=== PATIENT | female | born 1980 | race Hispanic/Latino ===

== ENCOUNTER 2017-09-01 18:26 | Inpatient (IN) | payer OTHER, SELFPAY ==
[~2017-09-01 18:26] MED LIST: ISOVUE-370 76%-LOCM 1 ML ONE
[2017-09-01] MEDS ORDERED: Fentanyl 100 MCG/2 ML VIAL ONE (18:43)
[2017-09-01 18:49] LABS: Hemoglobin 11.3 g/dL (12.0-16.0); Mean Corpuscular HGB CONC 32.7 g/dL (32.0-36.0); Mean Corpuscular Hemoglobin 30.8 pg (27.0-31.0); Mean Corpuscular Volume 94.3 fL (78.0-98.0); Mean Platelet Volume 6.6 fL (7.4-10.4); Platelet Count 299 thou/uL (130-400); RBC Distribution Width 11.3 % (11.5-14.5); Red Blood Cell (RBC) Count 3.67 mill/uL (4.20-5.40); White Blood Cell (WBC) Count 28.2 thou/uL (4.8-10.8)
[2017-09-01 18:54] LABS: INR-International Normal Ratio 1.2; PTT 29.3 SEC (22.9-36.1); Prothrombin Time 15.2 SEC (12.0-14.7)
[2017-09-01 19:03] LABS: Band 17 % (5-11); Lymphocytes 18 % (21-51); MDiff Complete? YES; Metamyelocyte 1 % (0-0); Monocytes 4 % (0-10); Neutrophil 58 % (42-75); PLT Morphology Comment Appears Adequate; Polychromasia SLIGHT = 2-3 cells (100X) (0-2/hpf); Reactive Lymphocytes 1 % (0-10)
[2017-09-01 19:05] LABS: ALT (SGPT) 994 U/L (8-55); AST (SGOT) 1114 U/L (5-34); Albumin 3.4 g/dL (3.5-5.0); Alkaline Phosphatase 80 U/L (40-150); Anion Gap 14 mmol/L (10-20); BUN (Urea Nitrogen) 16 mg/dL (7.0-18.7); Bilirubin, Total 0.6 mg/dL (0.2-1.2); Calc. Creatinine Clearance 0 mL/min (70-130); Calcium 8.1 mg/dL (7.8-10.44); Carbon Dioxide 17 mmol/L (22-29); Chloride 111 mmol/L (98-107); Estimated GFR-MDRD 70; Globulin 2.5 g/dL (2.4-3.5); Glucose 223 mg/dL (70-105); Lipase 48 U/L (8-78); Potassium 3.2 mmol/L (3.5-5.1); Protein, Total 5.9 g/dL (6.0-8.3); Sodium 139 mmol/L (136-145)
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
[2017-09-01] MEDS ORDERED: Lidocaine 1% w/Epinephrine 1:100K 20 ML VIAL ONE ×2 (19:15→19:23)
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
[2017-09-01] MEDS ORDERED: Ondansetron HCl/PF 4 MG/2 ML Vial ONE ×2 (20:05→21:13)
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
[2017-09-01] MEDS ORDERED: Adacel (T-DAP) 0.5 ML VIAL ONE (20:38)
[2017-09-01] MEDS ORDERED: Dextrose 5% in Water 1,000 ML IV PRN ×2 (20:39→20:48)
[2017-09-01] MEDS ORDERED: Dextrose 50% Abboject 50 ML SYRINGE SLOW IVP PRN ×2 (20:39→20:48)
[2017-09-01] MEDS ORDERED: HumaLOG 300 UNITS/3 ML VIAL SC PRN (20:48)
[2017-09-01] MEDS ORDERED: diphenhydrAMINE 50 MG/ML VIAL IM/IV PRN (20:51)
[2017-09-01] MEDS ORDERED: Naloxone HCl 0.4 mg/ml Vial IV PRN (20:51)
[2017-09-01] MEDS ORDERED: HYDROmorphone 10 mg/100 ml CADD IV PRN (20:51)
[2017-09-01] MEDS ORDERED: diphenhydrAMINE 25 MG CAP PO PRN (20:51)
[2017-09-01] MEDS ORDERED: Ondansetron HCl/PF 4 MG/2 ML Vial IVP PRN (20:51)
[2017-09-01] MEDS ORDERED: Zolpidem Tartrate 5 MG TAB PO PRN (20:51)
[2017-09-01] MEDS ORDERED: Promethazine HCl 25 MG/ML VIAL IM PRN (20:51)
[2017-09-01] MEDS ORDERED: CEFAZOLIN 1 GM VIAL ONE (20:54)
[2017-09-01 20:57] LABS: Hemoglobin 13.2 g/dL (12.0-16.0)
[2017-09-01] MEDS ORDERED: Tranexamic Acid 1,000 MG in Sodium Chloride 0.9% 250 ML 250 ML IVPB SCH (21:00)
[2017-09-01 21:06] LABS: INR-International Normal Ratio 1.1; PTT 29.2 SEC (22.9-36.1); Prothrombin Time 14.2 SEC (12.0-14.7)
[2017-09-01 21:18] LABS: BHCG - Serum Negative (NEGATIVE); Pregs Control Background? CLEAR/WHITE (CLR/WHITE); Pregs Control Bar Appear? YES (CONTROL BAR)
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
[2017-09-01 22:02] LABS: Bilirubin Negative (Negative); Blood, Urine Large (Negative); Clarity CLOUDY (Clear); Glucose, Urine (Dipstick) 100 mg/dL (Negative); Leukocyte Negative (Negative); Nitrite Negative (Negative); Protein, Urine (Dipstick) 100 mg/dL (Neg-Trace); Urobilinogen 0.2 mg/dL (0.2-1.0); pH, Urine 5.5 (5.0-9.0)
[2017-09-01 22:04] LABS: Bacteria/HPF None Seen HPF (None Seen); RBC/HPF 0-3 HPF (0-3); WBC/HPF 0-3 HPF (0-3); Yeast-AUWi Flag 6.3 (0-25.0)
[2017-09-01 22:05] LABS: Hyaline Casts/LPF >50 HYALINE CAST LPF (0-3 Hyaline); Pathc Cast-AUWi Flag 12.21 (0-2.49)
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
[2017-09-01 22:13] LABS: Other Casts/LPF 7-10 COARSE GRAN LPF (0-3 Hyaline)
[2017-09-01 23:37] VITALS: BMI 34.8
[2017-09-02 00:46] LABS: Hemoglobin 13.8 g/dL (12.0-16.0)
[2017-09-02] MEDS: Famotidine/PF 20 mg/2ml Vial SLOW IVP SCH ×3 (01:58→20:43)
[2017-09-02] MEDS: Ondansetron HCl/PF 4 MG/2 ML Vial IVP PRN ×3 (02:16→13:52)
[2017-09-02 06:25] LABS: #Lymphocytes 0.9 thou/uL (1.20-3.40); #Monocytes 0.6 thou/uL (0.11-0.59); #Neutrophils 7.3 thou/uL (1.40-6.50); %Eosinophils 0.2 % (0.0-10.0); %Lymphocytes 10.2 % (21.0-51.0); %Monocytes 6.8 % (0.0-10.0); %Neutrophils 82.8 % (42.0-75.0); Hemoglobin 13.7 g/dL (12.0-16.0); Mean Corpuscular HGB CONC 32.3 g/dL (32.0-36.0); Mean Corpuscular Hemoglobin 29.9 pg (27.0-31.0); Mean Corpuscular Volume 92.3 fL (78.0-98.0); Mean Platelet Volume 7.5 fL (7.4-10.4); Platelet Count 147 thou/uL (130-400); RBC Distribution Width 13.7 % (11.5-14.5); Red Blood Cell (RBC) Count 4.59 mill/uL (4.20-5.40); White Blood Cell (WBC) Count 8.8 thou/uL (4.8-10.8)
--- NOTE | 2017-09-02 06:30 | OP ---
DATE OF PROCEDURE: 09/01/2017 PROCEDURE DESCRIPTION: Right chest thoracostomy tube placement. INDICATION: Right pneumothorax. PROCEDURE IN DETAIL: Informed consent was obtained verbally from the patient prior to procedure. A timeout was completed verifying correct patient, procedure site. The patient was positioned appropriately. The right chest was prepped and draped in a sterile fashion. 1% lidocaine with epinephrine was used to anesthetize the surrounding skin. A small incision was made in the mid axillary line at the inframammary crease. Blunt dissection was used to create a subcutaneous tunnel to the superior portion of the rib. The pleural space was then entered bluntly and a gush of air was observed. A finger was inserted into the pleural space to check for anatomy and guide tube insertion. A 36 Bhutanese thoracostomy tube was inserted using a Montse clamp and positioned appropriately. The chest tube was sutured securely to the skin and a sterile dressing was applied. Pleur-Evac was attached to the chest and a chest x-ray was obtained. Procedure was performed with the assistance of Dr. Hopson who was present for the entire procedure. Estimated blood loss minimal. The patient tolerated the procedure well and there were no immediate complications. RAMONA
[2017-09-02 06:45] LABS: Anion Gap 10 mmol/L (10-20); BUN (Urea Nitrogen) 12 mg/dL (7.0-18.7); Calc. Creatinine Clearance 154 mL/min (70-130); Calcium 8.2 mg/dL (7.8-10.44); Carbon Dioxide 25 mmol/L (22-29); Chloride 111 mmol/L (98-107); Estimated GFR-MDRD Greater than 90; Glucose 141 mg/dL (70-105); Magnesium 1.9 mg/dL (1.6-2.6); Phosphorus 2.1 mg/dL (2.3-4.7); Sodium 142 mmol/L (136-145)
[2017-09-02] MEDS ORDERED: Rib Fracture Protocol IV SCH (08:15)
[2017-09-02] MEDS ORDERED: Rib Fracture Protocol PO SCH (08:15)
[2017-09-02] MEDS ORDERED: Cyclobenzaprine 10 MG TAB PO PRN (08:30)
[2017-09-02] MEDS: Scopolamine 1.5 mg/72 hour Patch TD SCH (08:44)
[2017-09-02] MEDS: Lactated Ringer's 1,000 ML IV SCH ×2 (08:45→18:02)
[2017-09-02] MEDS ORDERED: Gabapentin 100 MG CAP PO SCH (09:00)
--- NOTE | 2017-09-02 09:14 | RAD ---
PORTABLE CHEST 1 VIEW: Date: 09/02/17 Time: 0426 hours HISTORY: Pneumothorax, rib fractures. FINDINGS/IMPRESSION: No significant interval change is seen since the exam of previous day at 1844 hours. POS: [facility]
[2017-09-02] MEDS: Gabapentin 300 MG CAP PO SCH ×3 (10:38→20:44)
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
[2017-09-02] MEDS ORDERED: traMADol HCl 50 MG TAB PO SCH (12:00)
[2017-09-02] MEDS ORDERED: Acetaminophen 650 MG Suppository PR SCH (12:00)
[2017-09-02] MEDS ORDERED: Acetaminophen 500 MG TAB PO SCH (12:00)
[2017-09-02] MEDS ORDERED: Ketorolac Tromethamine 30 MG/ML VIAL IVP SCH ×2 (12:00)
[2017-09-02] MEDS ORDERED: Ibuprofen 800 MG TAB PO SCH (12:00)
[2017-09-02] MEDS: traMADol HCl 50 MG TAB PO SCH ×3 (13:34→23:41)
[2017-09-02] MEDS: Ibuprofen 800 MG TAB PO SCH ×2 (13:57→20:44)
[2017-09-02] MEDS: Acetaminophen 500 MG TAB PO SCH ×3 (13:57→23:40)
[2017-09-02] MEDS ORDERED: Ibuprofen 600 MG TAB PO SCH (14:00)
[2017-09-03] MEDS: Lactated Ringer's 1,000 ML IV SCH ×3 (02:00→12:23)
[2017-09-03] MEDS: Ibuprofen 800 MG TAB PO SCH ×3 (05:07→19:46)
[2017-09-03] MEDS: Acetaminophen 500 MG TAB PO SCH ×4 (05:07→23:11)
[2017-09-03] MEDS: traMADol HCl 50 MG TAB PO SCH ×3 (05:10→17:28)
[2017-09-03 05:51] LABS: #Lymphocytes 1.3 thou/uL (1.20-3.40); #Monocytes 0.7 thou/uL (0.11-0.59); #Neutrophils 8.9 thou/uL (1.40-6.50); %Basophils 0.2 % (0.0-1.0); %Eosinophils 0.4 % (0.0-10.0); %Lymphocytes 12.1 % (21.0-51.0); %Monocytes 6.6 % (0.0-10.0); %Neutrophils 80.6 % (42.0-75.0); Hemoglobin 13.3 g/dL (12.0-16.0); Mean Corpuscular HGB CONC 33.5 g/dL (32.0-36.0); Mean Corpuscular Hemoglobin 31.2 pg (27.0-31.0); Mean Corpuscular Volume 93.1 fL (78.0-98.0); Mean Platelet Volume 7.4 fL (7.4-10.4); Platelet Count 132 thou/uL (130-400); RBC Distribution Width 13.8 % (11.5-14.5); Red Blood Cell (RBC) Count 4.26 mill/uL (4.20-5.40); White Blood Cell (WBC) Count 11.1 thou/uL (4.8-10.8)
[2017-09-03 06:14] LABS: Anion Gap 9 mmol/L (10-20); BUN (Urea Nitrogen) 11 mg/dL (7.0-18.7); Calc. Creatinine Clearance 159 mL/min (70-130); Calcium 8.2 mg/dL (7.8-10.44); Carbon Dioxide 28 mmol/L (22-29); Chloride 107 mmol/L (98-107); Estimated GFR-MDRD Greater than 90; Glucose 108 mg/dL (70-105); Potassium 3.5 mmol/L (3.5-5.1); Sodium 140 mmol/L (136-145)
[2017-09-03] MEDS ORDERED: traMADol HCl 50 MG TAB PO PRN ×2 (07:39→19:36)
[2017-09-03] MEDS ORDERED: Potassium Phosphate 30 MMOL in Sodium Chloride 0.9% 500 ML IVPB SCH (08:30)
--- NOTE | 2017-09-03 08:40 | RAD ---
CHEST 1 VIEW: HISTORY: Chest pain. Pneumothorax. COMPARISON: 09/02/17. FINDINGS: Cardiac silhouette is magnified by projection. Pulmonary vasculature remains engorged and accentuate d by shallow inspiration. Mediastinum is midline. Bibasilar infiltrates are similar in appearance to the prior study. Right thoracostomy tube is in place. Proximal is just lateral to the ches t wall on the frontal view. A small amount of chest wall gas. No significant residual pneumothorax on the portable upright exam. IMPRESSION: Right thoracostomy tube unchanged in position with sidehole just outside of the thoracic cavity. Oth er findings are also stable. POS: [facility]
[2017-09-03] MEDS: Enoxaparin Sodium 40 MG/0.4 ML SYRINGE SC SCH (09:07)
[2017-09-03] MEDS: Famotidine 20 MG TAB PO SCH ×2 (09:07→19:47)
[2017-09-03] MEDS: Gabapentin 100 MG CAP PO SCH ×3 (09:07→19:46)
[2017-09-03] MEDS: Famotidine/PF 20 mg/2ml Vial SLOW IVP SCH (09:13)
--- NOTE | 2017-09-03 10:02 | RAD ---
SINGLE VIEW OF THE CHEST: Comparison: 09-03-17 at 4:16 a.m. History: Hemothorax and rib fractures. FINDINGS: Single view of the chest shows elevation of the right hemidiaphragm. The right sided chest tube has b een removed. No definite pneumothorax is seen. Opacity is seen in the right lung base which may repre sent a small amount of pleural fluid. There are multiple right sided rib fractures. IMPRESSION: Stable exam status post chest tube removal. POS: [facility]
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
[2017-09-03] MEDS: Senokot S 8.6-50 MG TAB PO SCH (19:46)
[2017-09-03] MEDS ORDERED: Famotidine 20 MG TAB PO SCH (21:00)
[2017-09-03] MEDS: Ondansetron HCl/PF 4 MG/2 ML Vial IVP PRN (23:11)
[2017-09-03] MEDS: traMADol HCl 50 MG TAB PO PRN (23:27)
[2017-09-04] MEDS: Acetaminophen 500 MG TAB PO SCH ×4 (05:39→22:43)
[2017-09-04] MEDS: Ibuprofen 800 MG TAB PO SCH ×3 (05:39→20:19)
[2017-09-04] MEDS: traMADol HCl 50 MG TAB PO PRN ×2 (05:40→22:44)
[2017-09-04 06:03] LABS: Anion Gap 9 mmol/L (10-20); BUN (Urea Nitrogen) 10 mg/dL (7.0-18.7); Calc. Creatinine Clearance 186 mL/min (70-130); Carbon Dioxide 25 mmol/L (22-29); Chloride 104 mmol/L (98-107); Estimated GFR-MDRD Greater than 90; Glucose 88 mg/dL (70-105); Magnesium 1.8 mg/dL (1.6-2.6); Potassium 3.5 mmol/L (3.5-5.1); Sodium 134 mmol/L (136-145)
[2017-09-04 06:22] LABS: #Eosinphils 0.1 thou/uL (0.0-0.7); #Lymphocytes 1.8 thou/uL (1.20-3.40); #Monocytes 0.8 thou/uL (0.11-0.59); #Neutrophils 10.3 thou/uL (1.40-6.50); %Basophils 0.2 % (0.0-1.0); %Eosinophils 1.2 % (0.0-10.0); %Lymphocytes 14.1 % (21.0-51.0); %Monocytes 5.8 % (0.0-10.0); %Neutrophils 78.7 % (42.0-75.0); Hemoglobin 12.9 g/dL (12.0-16.0); Mean Corpuscular HGB CONC 33.1 g/dL (32.0-36.0); Mean Corpuscular Hemoglobin 30.5 pg (27.0-31.0); Mean Platelet Volume 7.7 fL (7.4-10.4); PLT Morphology Comment Appears Decreased; Platelet Count 117 thou/uL (130-400); RBC Distribution Width 13.7 % (11.5-14.5); RBC Morphology Normal; Red Blood Cell (RBC) Count 4.22 mill/uL (4.20-5.40)
[2017-09-04] MEDS: Polyethylene Glycol 3350 17 GM Packet PO SCH (08:26)
[2017-09-04] MEDS: Cyclobenzaprine 10 MG TAB PO PRN ×2 (08:26→22:43)
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
[2017-09-04] MEDS: Ondansetron ODT 4 MG TAB PO PRN (08:27)
[2017-09-04] MEDS: Enoxaparin Sodium 40 MG/0.4 ML SYRINGE SC SCH (08:27)
[2017-09-04] MEDS: Senokot S 8.6-50 MG TAB PO SCH ×2 (08:27→20:19)
[2017-09-04] MEDS: Famotidine 20 MG TAB PO SCH ×2 (08:27→20:19)
[2017-09-04] MEDS: Gabapentin 100 MG CAP PO SCH ×3 (08:27→20:19)
[2017-09-04] MEDS ORDERED: Magnesium 2 GM/NS 0.9% 100 ML 3 GM in Premix Bag 1 BAG IVPB SCH (09:15)
[2017-09-04] MEDS ORDERED: Potassium Phosphate 30 MMOL, Magnesium Sulfate 3 GM in Sodium Chloride 0.9% 250 ML 250 ML IVPB SCH (09:15)
--- NOTE | 2017-09-04 11:43 | CT ---
CT CHEST WITHOUT CONTRAST: HISTORY: Evaluate for possible right-sided hydropneumothorax/hemopneumothorax. COMPARISON: 09/01/17. TECHNIQUE: A noncontrast chest CT is performed in the axial plane. Reformatted images are submitted for interpr etation. FINDINGS: Limited evaluation of the mediastinal structures due to lack of IV contrast. No mediastinal mass, ly mphadenopathy, or hematoma. Heart size is within normal limits. No significant pericardial fluid. Redemonstration of posttraumatic changes involving the solid organs in the upper abdomen. There is h eterogeneous appearance of the liver. There is evidence of perihepatic and perisplenic fluid. There is a small left-sided pleural effusion and a trace right-sided pleural effusion. There is a sm all amount of loculated blood along the lateral aspect of the right hemithorax, measuring 7 mm in max imum dimension. Multiple right rib fractures are redemonstrated. Trace right-sided pneumothorax. S ubcutaneous emphysema in the right chest wall is noted. There is evidence of a fracture involving the sternum which appears to be nondisplaced. IMPRESSION: 1. Trace amount of fluid in the right pleural space. Trace right-sided pneumothorax. 2. Multiple right rib fractures. 3. Posttraumatic change involving the solid organs as described above. There is evidence of posttra umatic hemorrhage in the peritoneal space. POS: [facility]
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
[2017-09-05] MEDS ORDERED: traMADol HCl 50 MG TAB PO PRN (00:25)
[2017-09-05] MEDS ORDERED: Ketorolac Tromethamine 30 MG/ML VIAL IVP SCH (00:30)
[2017-09-05] MEDS: traMADol HCl 50 MG TAB PO SCH ×4 (02:02→20:29)
[2017-09-05] MEDS: Cyclobenzaprine 10 MG TAB PO PRN ×2 (06:08→16:24)
[2017-09-05] MEDS: Ibuprofen 800 MG TAB PO SCH (06:08)
[2017-09-05] MEDS: Acetaminophen 500 MG TAB PO SCH ×2 (06:08→11:42)
[2017-09-05] MEDS: Senokot S 8.6-50 MG TAB PO SCH ×2 (08:13→20:30)
[2017-09-05] MEDS: Gabapentin 100 MG CAP PO SCH (08:13)
[2017-09-05] MEDS: Scopolamine 1.5 mg/72 hour Patch TD SCH (08:14)
[2017-09-05] MEDS: Famotidine 20 MG TAB PO SCH ×2 (08:14→20:29)
[2017-09-05] MEDS: Enoxaparin Sodium 40 MG/0.4 ML SYRINGE SC SCH (08:15)
[2017-09-05] MEDS: Polyethylene Glycol 3350 17 GM Packet PO SCH (08:15)
--- NOTE | 2017-09-05 09:19 | RAD ---
CHEST 1 VIEW: COMPARISON: 09/04/17. HISTORY: Status post chest tube removal. Pleural effusion. FINDINGS: Slight interval increased opacification of the lung bases which may represent reaccumulation of pleur al fluid versus bibasilar atelectasis. Stable right rib fractures. No definite pneumothorax. IMPRESSION: Increased opacification of the lung bases as described above. POS: [facility]
[2017-09-05] MEDS: Ketorolac Tromethamine 30 MG/ML VIAL IVP SCH ×2 (11:42→17:01)
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
--- NOTE | 2017-09-05 15:50 | EKG ---
Test Reason : Blood Pressure : / mmHG Vent. Rate : 107 BPM Atrial Rate : 107 BPM P-R Int : 116 ms QRS Dur : 086 ms QT Int : 344 ms P-R-T Axes : 029 053 007 degrees QTc Int : 459 ms Sinus tachycardia Otherwise normal ECG Confirmed by RODERICK MIKE, KAILASH ([id number]), index editor VALENTINA ZALDIVAR ([id number]) on 09/05/2017 3:49:36 PM Referred By: Confirmed By:KAILASH VAUGHN MD
[2017-09-05] MEDS: HYDROcodone/Acetaminophen 7.5/325 mg Tablet PO SCH (17:00)
[2017-09-05] MEDS: HYDROcodone/Acetaminophen 7.5/325 mg Tablet PO PRN (20:28)
[2017-09-06] MEDS: HYDROcodone/Acetaminophen 7.5/325 mg Tablet PO SCH ×4 (01:37→17:51)
[2017-09-06] MEDS: Ketorolac Tromethamine 30 MG/ML VIAL IVP SCH ×4 (01:38→17:53)
[2017-09-06] MEDS ORDERED: Sodium Chloride 0.9% 500 ML IVPB SCH (01:45)
[2017-09-06] MEDS: HYDROcodone/Acetaminophen 7.5/325 mg Tablet PO PRN (01:54)
[2017-09-06 06:13] LABS: Anion Gap 11 mmol/L (10-20); BUN (Urea Nitrogen) 8 mg/dL (7.0-18.7); Calc. Creatinine Clearance 174 mL/min (70-130); Calcium 8.1 mg/dL (7.8-10.44); Carbon Dioxide 26 mmol/L (22-29); Chloride 97 mmol/L (98-107); Estimated GFR-MDRD Greater than 90; Glucose 99 mg/dL (70-105); Magnesium 1.8 mg/dL (1.6-2.6); Phosphorus 2.3 mg/dL (2.3-4.7); Potassium 3.8 mmol/L (3.5-5.1); Sodium 130 mmol/L (136-145)
[2017-09-06 06:48] LABS: Band 36 % (5-11); Eosinophils 1 % (0-10); Hemoglobin 12.2 g/dL (12.0-16.0); Lymphocytes 4 % (21-51); MDiff Complete? YES; Mean Corpuscular Hemoglobin 29.7 pg (27.0-31.0); Mean Corpuscular Volume 92.8 fL (78.0-98.0); Mean Platelet Volume 7.2 fL (7.4-10.4); Monocytes 3 % (0-10); Neutrophil 56 % (42-75); Platelet Count 131 thou/uL (130-400); RBC Distribution Width 13.7 % (11.5-14.5); White Blood Cell (WBC) Count 12.1 thou/uL (4.8-10.8)
[2017-09-06 07:31] LABS: Clarity TURBID (Clear)
[2017-09-06 07:33] LABS: Bacteria/HPF None Seen HPF (None Seen); RBC/HPF GREATER THAN 50-TNTC HPF (0-3); Squamous Epithelial 21-50 HPF (0-3)
[2017-09-06] MEDS: Enoxaparin Sodium 40 MG/0.4 ML SYRINGE SC SCH (07:44)
[2017-09-06] MEDS: Famotidine 20 MG TAB PO SCH ×2 (07:44→21:35)
[2017-09-06 07:48] LABS: Pathc Cast-AUWi Flag 14.26 (0-2.49)
[2017-09-06] MEDS: Polyethylene Glycol 3350 17 GM Packet PO SCH (07:49)
[2017-09-06] MEDS: Senokot S 8.6-50 MG TAB PO SCH ×2 (07:49→21:52)
[2017-09-06 08:00] LABS: Nitrite Unable to Interpret (Negative); Urobilinogen UNABLE TO INTERPRET mg/dL (0.2-1.0)
[2017-09-06 08:01] LABS: Bilirubin Unable to Interpret (Negative); Blood, Urine Unable to Interpret (Negative); Leukocyte Unable to Interpret (Negative); Protein, Urine (Dipstick) Unable to Interpret mg/dL (Neg-Trace)
[2017-09-06 08:04] LABS: Specific Gravity, Urine 1.031 (1.002-1.036); pH, Urine 5.9 (5.0-9.0)
[2017-09-06 08:05] LABS: Glucose, Urine (Dipstick) Unable to Interpret mg/dL (Negative); Hyaline Casts/LPF 0-3 HYALINE CAST LPF (0-3 Hyaline); Manual Microscopic Reviewed? No Path Casts Seen; Renal Epithelial None Seen HPF (0-3); Transitional Epithelial NONE SEEN HPF (0-3); Trichomonas/HPF None Seen HPF (None Seen)
--- NOTE | 2017-09-06 09:47 | RAD ---
FRONTAL VIEW CHEST: COMPARISON: 09/04/17. FINDINGS: There is redemonstration of bibasilar densities, right greater than left. Cardiac silhouette and pul monary vasculature is prominent. IMPRESSION: Findings indicate probable sequelae from fluid overload with bilateral pleural fluid. Recommend clin ical correlation as well as imaging followup. POS: [facility]
[2017-09-06] MEDS ORDERED: Furosemide 20 MG TAB PO SCH (13:30)
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
[2017-09-06] MEDS ORDERED: cefTRIAXone\\ROCEPHIN 2 GM in Sodium Chloride 0.9% 100 ML IVPB SCH (18:00)
[2017-09-06] MEDS ORDERED: traMADol HCl 50 MG TAB PO SCH (18:00)
[2017-09-06] MEDS ORDERED: Acetaminophen 500 MG TAB PO SCH (18:00)
[2017-09-06] MEDS: Levalbuterol HCl 0.63 MG/3 ML NEB NEB SCH (20:05)
[2017-09-06] MEDS: Acetaminophen 500 MG TAB PO SCH (21:36)
[2017-09-06] MEDS: traMADol HCl 50 MG TAB PO SCH (21:36)
[2017-09-06] MEDS ORDERED: Levalbuterol HCl 0.63 MG/3 ML NEB NEB SCH (23:00)
[2017-09-07] MEDS: Levalbuterol HCl 0.63 MG/3 ML NEB NEB SCH ×5 (00:07→23:36)
[2017-09-07] MEDS: HYDROcodone/Acetaminophen 7.5/325 mg Tablet PO SCH ×4 (00:53→17:23)
[2017-09-07] MEDS: Ketorolac Tromethamine 30 MG/ML VIAL IVP SCH ×4 (00:54→17:24)
[2017-09-07] MEDS: traMADol HCl 50 MG TAB PO SCH ×4 (03:22→22:23)
[2017-09-07] MEDS: Acetaminophen 500 MG TAB PO SCH ×4 (03:23→22:22)
[2017-09-07] MEDS: Sodium Chloride 0.9% 1,000 ML IV SCH ×2 (03:43→11:31)
[2017-09-07] MEDS: HYDROcodone/Acetaminophen 7.5/325 mg Tablet PO PRN (04:31)
[2017-09-07 05:00] LABS: Anion Gap 12 mmol/L (10-20); BUN (Urea Nitrogen) 7 mg/dL (7.0-18.7); Calc. Creatinine Clearance 196 mL/min (70-130); Calcium 8.5 mg/dL (7.8-10.44); Carbon Dioxide 28 mmol/L (22-29); Chloride 97 mmol/L (98-107); Estimated GFR-MDRD Greater than 90; Glucose 88 mg/dL (70-105); Potassium 3.3 mmol/L (3.5-5.1); Sodium 134 mmol/L (136-145)
[2017-09-07 05:07] LABS: Phosphorus 1.9 mg/dL (2.3-4.7)
[2017-09-07 05:47] LABS: Band 48 % (5-11); Eosinophils 1 % (0-10); Hemoglobin 11.2 g/dL (12.0-16.0); Lymphocytes 6 % (21-51); MDiff Complete? YES; Mean Corpuscular HGB CONC 33.5 g/dL (32.0-36.0); Mean Corpuscular Hemoglobin 30.8 pg (27.0-31.0); Mean Corpuscular Volume 91.9 fL (78.0-98.0); Mean Platelet Volume 7.6 fL (7.4-10.4); Neutrophil 45 % (42-75); PLT Morphology Comment Appears Decreased; Platelet Count 109 thou/uL (130-400); RBC Distribution Width 13.4 % (11.5-14.5); Red Blood Cell (RBC) Count 3.65 mill/uL (4.20-5.40); White Blood Cell (WBC) Count 8.3 thou/uL (4.8-10.8)
[2017-09-07] MEDS ORDERED: Potassium Phosphate 30 MMOL in Sodium Chloride 0.9% 250 ML 250 ML IVPB SCH (06:00)
[2017-09-07] MEDS ORDERED: Clopidogrel Bisulfate 75 MG TAB ONE (06:31)
[2017-09-07] MEDS: Enoxaparin Sodium 40 MG/0.4 ML SYRINGE SC SCH (08:26)
[2017-09-07] MEDS: Famotidine 20 MG TAB PO SCH ×2 (08:26→22:23)
[2017-09-07] MEDS: Polyethylene Glycol 3350 17 GM Packet PO SCH (08:27)
[2017-09-07] MEDS: Senokot S 8.6-50 MG TAB PO SCH ×2 (08:27→21:19)
--- NOTE | 2017-09-07 08:40 | RAD ---
AP VIEW CHEST: INDICATIONS: History of follow-up examination. COMPARISON: 09/16/2017 FINDINGS: There is elevation of the right hemidiaphragm. Atelectasis and small bilateral pleural effusions rem ain. Low lung volumes accentuate the cardiac silhouette. No definite pneumothorax is evident. Mult iple right-sided rib fractures are stable to the comparison. IMPRESSION: Largely stable examination. Low lung volumes. POS: [facility]
[2017-09-07] MEDS ORDERED: Lidocaine 1% (PF) 30 ML VIAL SC SCH (09:30)
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
[2017-09-07] MEDS: cefTRIAXone\\ROCEPHIN 2 GM, Admixture Fee 1 EACH in Sodium Chloride 0.9% 100 ML IVPB SCH (17:23)
[2017-09-07] MEDS: Ondansetron ODT 4 MG TAB PO PRN (17:23)
[2017-09-08] MEDS: Ketorolac Tromethamine 30 MG/ML VIAL IVP SCH ×5 (00:20→23:57)
[2017-09-08] MEDS: HYDROcodone/Acetaminophen 7.5/325 mg Tablet PO SCH ×5 (00:20→23:57)
[2017-09-08] MEDS: traMADol HCl 50 MG TAB PO SCH ×4 (03:55→20:29)
[2017-09-08] MEDS: Acetaminophen 500 MG TAB PO SCH ×4 (03:55→20:28)
[2017-09-08] MEDS: Cyclobenzaprine 10 MG TAB PO PRN (05:11)
[2017-09-08 05:33] LABS: #Lymphocytes 0.8 thou/uL (1.20-3.40); #Monocytes 0.5 thou/uL (0.11-0.59); #Neutrophils 8.1 thou/uL (1.40-6.50); %Basophils 0.2 % (0.0-1.0); %Eosinophils 0.5 % (0.0-10.0); %Lymphocytes 8.8 % (21.0-51.0); %Monocytes 5.1 % (0.0-10.0); %Neutrophils 85.4 % (42.0-75.0); Hemoglobin 12.3 g/dL (12.0-16.0); Mean Corpuscular HGB CONC 32.2 g/dL (32.0-36.0); Mean Corpuscular Hemoglobin 29.7 pg (27.0-31.0); Mean Corpuscular Volume 92.3 fL (78.0-98.0); Mean Platelet Volume 7.6 fL (7.4-10.4); Platelet Count 127 thou/uL (130-400); RBC Distribution Width 13.5 % (11.5-14.5); Red Blood Cell (RBC) Count 4.13 mill/uL (4.20-5.40); White Blood Cell (WBC) Count 9.5 thou/uL (4.8-10.8)
[2017-09-08 05:51] LABS: Anion Gap 15 mmol/L (10-20); BUN (Urea Nitrogen) 8 mg/dL (7.0-18.7); Calc. Creatinine Clearance 196 mL/min (70-130); Calcium 8.6 mg/dL (7.8-10.44); Carbon Dioxide 24 mmol/L (22-29); Chloride 95 mmol/L (98-107); Estimated GFR-MDRD Greater than 90; Glucose 90 mg/dL (70-105); Magnesium 1.8 mg/dL (1.6-2.6); Potassium 3.4 mmol/L (3.5-5.1); Sodium 131 mmol/L (136-145)
[2017-09-08] MEDS: Levalbuterol HCl 0.63 MG/3 ML NEB NEB SCH ×4 (07:19→21:54)
--- NOTE | 2017-09-08 08:39 | RAD ---
AP VIEW CHEST: Date: 09/08/17 INDICATION: Chest tube placement. COMPARISON: Prior exam dated 09/27/17. FINDINGS/IMPRESSION: Since the comparison examination, there has been interval placement of a large bore chest tube enteri c in the lateral right 7th intercostal space. Right-sided pleural effusion is slightly decreased in s ize. There are residual interstitial and air space opacities within the right lung base that may ref lect atelectasis or pneumonia. No pneumothorax is evident. Left lung remains clear. Cardiomegaly is s imilar. Bilateral rib fractures are unchanged. POS: [facility]
[2017-09-08] MEDS: Scopolamine 1.5 mg/72 hour Patch TD SCH (08:45)
[2017-09-08] MEDS: Enoxaparin Sodium 40 MG/0.4 ML SYRINGE SC SCH (08:58)
[2017-09-08] MEDS: Famotidine 20 MG TAB PO SCH ×2 (08:59→20:28)
[2017-09-08] MEDS: Polyethylene Glycol 3350 17 GM Packet PO SCH (09:00)
[2017-09-08] MEDS: Senokot S 8.6-50 MG TAB PO SCH ×2 (09:00→20:30)
[2017-09-08] MEDS: Sodium Chloride 0.9% 1,000 ML IV SCH (09:13)
[2017-09-08] MEDS ORDERED: Fleet Enema 133 ML BOT PR SCH (09:30)
[2017-09-08] MEDS ORDERED: Potassium Phosphate 30 MMOL in Sodium Chloride 0.9% 250 ML 250 ML IVPB SCH (09:45)
[2017-09-08] MEDS: Magnesium Oxide 400 MG TAB PO SCH ×2 (10:00→20:28)
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
[2017-09-08] MEDS: Sodium Chloride 1 GM TAB PO SCH ×2 (12:48→17:46)
[2017-09-08] MEDS: cefTRIAXone\\ROCEPHIN 2 GM, Admixture Fee 1 EACH in Sodium Chloride 0.9% 100 ML IVPB SCH (17:47)
[2017-09-08] MEDS: Acetaminophen 1,000 MG in Premix Bag 1 BAG IVPB SCH (23:57)
[2017-09-09] MEDS: Acetaminophen 1,000 MG in Premix Bag 1 BAG IVPB SCH ×2 (01:03→05:41)
[2017-09-09] MEDS: Acetaminophen 500 MG TAB PO SCH ×4 (03:53→20:22)
[2017-09-09] MEDS: traMADol HCl 50 MG TAB PO SCH ×4 (03:53→20:22)
[2017-09-09 04:59] LABS: Anion Gap 11 mmol/L (10-20); BUN (Urea Nitrogen) 9 mg/dL (7.0-18.7); Calc. Creatinine Clearance 211 mL/min (70-130); Calcium 8.5 mg/dL (7.8-10.44); Carbon Dioxide 28 mmol/L (22-29); Chloride 99 mmol/L (98-107); Estimated GFR-MDRD Greater than 90; Glucose 96 mg/dL (70-105); Magnesium 1.7 mg/dL (1.6-2.6); Phosphorus 3.8 mg/dL (2.3-4.7); Potassium 3.2 mmol/L (3.5-5.1); Sodium 135 mmol/L (136-145)
[2017-09-09 05:36] LABS: Band 34 % (5-11); Eosinophils 1 % (0-10); Hemoglobin 10.9 g/dL (12.0-16.0); Lymphocytes 5 % (21-51); MDiff Complete? YES; Mean Corpuscular HGB CONC 34.3 g/dL (32.0-36.0); Mean Corpuscular Hemoglobin 31.6 pg (27.0-31.0); Mean Platelet Volume 7.3 fL (7.4-10.4); Monocytes 7 % (0-10); Neutrophil 53 % (42-75); Platelet Count 131 thou/uL (130-400); RBC Distribution Width 13.6 % (11.5-14.5); Red Blood Cell (RBC) Count 3.45 mill/uL (4.20-5.40); White Blood Cell (WBC) Count 12.3 thou/uL (4.8-10.8)
[2017-09-09] MEDS: Ketorolac Tromethamine 30 MG/ML VIAL IVP SCH ×4 (05:41→23:36)
[2017-09-09] MEDS: HYDROcodone/Acetaminophen 7.5/325 mg Tablet PO SCH ×4 (05:47→23:37)
[2017-09-09] MEDS: Levalbuterol HCl 0.63 MG/3 ML NEB NEB SCH ×3 (07:36→19:28)
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
[2017-09-09] MEDS ORDERED: Potassium Chloride 40 MEQ, Magnesium Sulfate 4 GM in Sodium Chloride 0.9% 250 ML 250 ML IVPB SCH (08:45)
[2017-09-09] MEDS ORDERED: Furosemide 40 MG/4 ML VIAL SLOW IVP SCH (09:15)
[2017-09-09] MEDS: Famotidine 20 MG TAB PO SCH ×2 (09:41→20:22)
[2017-09-09] MEDS: Sodium Chloride 1 GM TAB PO SCH ×3 (10:02→17:39)
[2017-09-09] MEDS: Senokot S 8.6-50 MG TAB PO SCH ×2 (10:03→20:22)
[2017-09-09] MEDS: Magnesium Oxide 400 MG TAB PO SCH ×2 (10:03→20:22)
[2017-09-09] MEDS: Polyethylene Glycol 3350 17 GM Packet PO SCH (10:03)
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
[2017-09-09] MEDS ORDERED: Midazolam HCl 2 mg/2 ml Vial ONE (12:12)
[2017-09-09] MEDS ORDERED: Fentanyl 250 MCG/5 ML VIAL ONE (12:12)
[2017-09-09] MEDS ORDERED: Bupivacaine HCl 0.5%/Epinephrine 1:200,000/PF 30 ml Vial ONE (13:11)
[2017-09-09] MEDS ORDERED: Glycopyrrolate 0.2 MG/ML 5 ML SYRINGE ONE (13:57)
[2017-09-09] MEDS ORDERED: Lidocaine 1% PF 5 ML VIAL ONE (13:57)
[2017-09-09] MEDS ORDERED: PROPOFOL 200 MG/20 ML VIAL ONE (13:57)
[2017-09-09] MEDS ORDERED: SUGAMMADEX SODIUM 200 MG/2 ML VIAL ONE (14:10)
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
--- NOTE | 2017-09-09 15:40 | RAD ---
AP VIEW OF THE CHEST: 09/09/17 INDICATION: History of thoracoscopy. IMPRESSION: Since the comparison exam dated 09/09/17, there has been interval placement of a second thoracostomy t ube. Right sided pleural effusion is slightly diminished. There is persistent hazy opacity in the rig ht lung base which may reflect atelectasis or residual pneumonia. Left lung is clear. There is a righ t subclavian central venous catheter that is new and projects in the region of the right atrium. Osse ous structures consistent with bilateral rib fractures are stable appearing. POS: [facility]
[2017-09-09] MEDS: cefTRIAXone\\ROCEPHIN 2 GM, Admixture Fee 1 EACH in Sodium Chloride 0.9% 100 ML IVPB SCH (17:38)
[2017-09-10] MEDS: Levalbuterol HCl 0.63 MG/3 ML NEB NEB SCH ×4 (01:03→19:13)
[2017-09-10] MEDS: traMADol HCl 50 MG TAB PO SCH ×4 (03:07→20:46)
[2017-09-10] MEDS: Acetaminophen 500 MG TAB PO SCH ×4 (03:07→20:47)
[2017-09-10] MEDS: Ketorolac Tromethamine 30 MG/ML VIAL IVP SCH ×3 (06:03→18:47)
[2017-09-10] MEDS: HYDROcodone/Acetaminophen 7.5/325 mg Tablet PO SCH ×3 (06:03→18:46)
--- NOTE | 2017-09-10 07:38 | RAD ---
UPRIGHT PORTABLE CHEST 1 VIEW: HISTORY: A 37-year-old female with a history of post right thoracoscopy. COMPARISON: 09/09/17. FINDINGS: Two right chest tubes in place with right rib fractures and extensive pleural and parenchymal opacity changes in the right lung. Right subclavian catheter. Heart size is normal. The left lung is johnna r. No evidence for a significant pneumothorax. IMPRESSION: Poor inspiratory effort. Prominent persistent pleural and parenchymal opacity changes in the right c hest, particularly in the mid and inferior portions laterally. Continue short-term followup. POS: [facility]
[2017-09-10 08:20] LABS: Hemoglobin 10.4 g/dL (12.0-16.0); Mean Corpuscular HGB CONC 33.6 g/dL (32.0-36.0); Mean Corpuscular Hemoglobin 30.8 pg (27.0-31.0); Mean Corpuscular Volume 91.6 fL (78.0-98.0); Mean Platelet Volume 6.7 fL (7.4-10.4); Platelet Count 235 thou/uL (130-400); RBC Distribution Width 13.6 % (11.5-14.5); Red Blood Cell (RBC) Count 3.37 mill/uL (4.20-5.40); White Blood Cell (WBC) Count 14.4 thou/uL (4.8-10.8)
[2017-09-10 08:43] LABS: Anion Gap 15 mmol/L (10-20); BUN (Urea Nitrogen) 9 mg/dL (7.0-18.7); Calc. Creatinine Clearance 211 mL/min (70-130); Calcium 8.2 mg/dL (7.8-10.44); Carbon Dioxide 27 mmol/L (22-29); Chloride 97 mmol/L (98-107); Estimated GFR-MDRD Greater than 90; Glucose 106 mg/dL (70-105); Magnesium 2.1 mg/dL (1.6-2.6); Potassium 3.9 mmol/L (3.5-5.1); Sodium 135 mmol/L (136-145)
[2017-09-10] MEDS: Magnesium Oxide 400 MG TAB PO SCH (08:43)
[2017-09-10] MEDS: Senokot S 8.6-50 MG TAB PO SCH ×2 (08:46→20:47)
[2017-09-10] MEDS: Famotidine 20 MG TAB PO SCH ×2 (08:46→20:47)
[2017-09-10] MEDS: Sodium Chloride 1 GM TAB PO SCH ×3 (08:46→16:53)
[2017-09-10 08:47] LABS: Band 5 % (5-11); Lymphocytes 8 % (21-51); MDiff Complete? YES; Monocytes 3 % (0-10); Neutrophil 84 % (42-75); PLT Morphology Comment Appears Adequate; Polychromasia SLIGHT = 2-3 cells (100X) (0-2/hpf)
[2017-09-10] MEDS: Polyethylene Glycol 3350 17 GM Packet PO SCH (08:47)
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
[2017-09-10] MEDS: Furosemide 20 MG TAB PO SCH ×2 (16:51→20:46)
[2017-09-10] MEDS: cefTRIAXone\\ROCEPHIN 2 GM, Admixture Fee 1 EACH in Sodium Chloride 0.9% 100 ML IVPB SCH (18:47)
[2017-09-11] MEDS: Ketorolac Tromethamine 30 MG/ML VIAL IVP SCH ×4 (00:42→18:15)
[2017-09-11] MEDS: HYDROcodone/Acetaminophen 7.5/325 mg Tablet PO SCH ×2 (00:42→06:29)
[2017-09-11] MEDS: Levalbuterol HCl 0.63 MG/3 ML NEB NEB SCH ×2 (01:03→07:46)
[2017-09-11] MEDS: traMADol HCl 50 MG TAB PO SCH ×4 (03:06→21:02)
[2017-09-11] MEDS: Acetaminophen 500 MG TAB PO SCH ×4 (03:06→21:02)
[2017-09-11 06:47] LABS: #Eosinphils 0.2 thou/uL (0.0-0.7); #Lymphocytes 1.5 thou/uL (1.20-3.40); #Monocytes 1.1 thou/uL (0.11-0.59); #Neutrophils 8.8 thou/uL (1.40-6.50); %Basophils 0.2 % (0.0-1.0); %Eosinophils 2.1 % (0.0-10.0); %Lymphocytes 13.1 % (21.0-51.0); %Monocytes 9.1 % (0.0-10.0); %Neutrophils 75.5 % (42.0-75.0); Hemoglobin 9.3 g/dL (12.0-16.0); Mean Corpuscular HGB CONC 33.8 g/dL (32.0-36.0); Mean Corpuscular Hemoglobin 31.1 pg (27.0-31.0); Platelet Count 289 thou/uL (130-400); RBC Distribution Width 13.5 % (11.5-14.5); White Blood Cell (WBC) Count 11.6 thou/uL (4.8-10.8)
[2017-09-11 07:01] LABS: Anion Gap 11 mmol/L (10-20); BUN (Urea Nitrogen) 7 mg/dL (7.0-18.7); Calc. Creatinine Clearance 219 mL/min (70-130); Calcium 7.9 mg/dL (7.8-10.44); Carbon Dioxide 31 mmol/L (22-29); Chloride 99 mmol/L (98-107); Estimated GFR-MDRD Greater than 90; Glucose 92 mg/dL (70-105); Magnesium 1.9 mg/dL (1.6-2.6); Phosphorus 3.6 mg/dL (2.3-4.7); Potassium 3.3 mmol/L (3.5-5.1); Sodium 138 mmol/L (136-145)
[2017-09-11] MEDS ORDERED: Magnesium Sulfate 3 GM in Sodium Chloride 0.9% 100 ML IVPB SCH (07:15)
[2017-09-11] MEDS ORDERED: Potassium Chloride 20 MEQ TAB PO SCH (07:15)
--- NOTE | 2017-09-11 07:46 | RAD ---
CHEST 1 VIEW: Date: 09/11/17 HISTORY: 37-year-old female with history of status post right thoracostomy. FINDINGS: Two right chest tubes remain in place with right subclavian catheter. Patchy persistent pleural and p arenchymal changes with some improved aeration from the prior study. Heart size is normal. The left l anastasia remains stable. IMPRESSION: Some improved aeration of the right lung with persistent but improving right pleural and parenchymal opacity changes. Right rib fractures. Right chest tubes are stable. No pneumothorax. POS: [facility]
[2017-09-11] MEDS: Furosemide 20 MG/2 ML VIAL SLOW IVP SCH ×2 (09:56→16:14)
[2017-09-11] MEDS: Ascorbic Acid 500 mg Chewable Tablet PO SCH ×2 (09:57→21:02)
[2017-09-11] MEDS: Senokot S 8.6-50 MG TAB PO SCH ×2 (09:57→21:03)
[2017-09-11] MEDS: Polyethylene Glycol 3350 17 GM Packet PO SCH (09:57)
[2017-09-11] MEDS: Ferrous Sulfate 325 MG TAB PO SCH ×2 (09:58→16:14)
[2017-09-11] MEDS: Famotidine 20 MG TAB PO SCH ×2 (09:58→21:02)
[2017-09-11] MEDS: Sodium Chloride 1 GM TAB PO SCH ×3 (10:00→18:14)
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
[2017-09-11] MEDS: cefTRIAXone\\ROCEPHIN 2 GM, Admixture Fee 1 EACH in Sodium Chloride 0.9% 100 ML IVPB SCH ×2 (18:09→18:14)
[2017-09-11] MEDS: Cyclobenzaprine 10 MG TAB PO PRN (18:14)
[2017-09-12] MEDS: Furosemide 20 MG/2 ML VIAL SLOW IVP SCH ×3 (00:39→20:54)
[2017-09-12] MEDS: traMADol HCl 50 MG TAB PO PRN (01:44)
[2017-09-12] MEDS: Cyclobenzaprine 10 MG TAB PO PRN (01:44)
[2017-09-12] MEDS: Acetaminophen 500 MG TAB PO SCH ×4 (03:24→20:54)
[2017-09-12] MEDS: traMADol HCl 50 MG TAB PO SCH ×4 (03:25→20:54)
[2017-09-12 09:09] LABS: Anion Gap 15 mmol/L (10-20); BUN (Urea Nitrogen) 7 mg/dL (7.0-18.7); Calc. Creatinine Clearance 203 mL/min (70-130); Calcium 9.1 mg/dL (7.8-10.44); Carbon Dioxide 26 mmol/L (22-29); Chloride 98 mmol/L (98-107); Estimated GFR-MDRD Greater than 90; Glucose 100 mg/dL (70-105); Magnesium 2.1 mg/dL (1.6-2.6); Potassium 4.2 mmol/L (3.5-5.1); Sodium 135 mmol/L (136-145)
--- NOTE | 2017-09-12 09:40 | RAD ---
PORTABLE CHEST: Date: 09/12/17 PROVIDED CLINICAL HISTORY: Hemothorax. FINDINGS: Comparison with 09/11/17. Significant interval change with respect to the prior examination is not apparent. IMPRESSION: As above. POS: [facility]
[2017-09-12] MEDS: Famotidine 20 MG TAB PO SCH ×2 (10:05→20:54)
[2017-09-12] MEDS: Ascorbic Acid 500 mg Chewable Tablet PO SCH ×2 (10:05→20:54)
[2017-09-12] MEDS: Senokot S 8.6-50 MG TAB PO SCH ×2 (10:05→20:55)
[2017-09-12] MEDS: Sodium Chloride 1 GM TAB PO SCH ×3 (10:05→18:02)
[2017-09-12] MEDS: Ferrous Sulfate 325 MG TAB PO SCH ×2 (10:06→18:02)
[2017-09-12] MEDS: Polyethylene Glycol 3350 17 GM Packet PO SCH (10:07)
[2017-09-12] MEDS: Scopolamine 1.5 mg/72 hour Patch TD SCH (10:17)
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
[2017-09-12] MEDS: cefTRIAXone\\ROCEPHIN 2 GM, Admixture Fee 1 EACH in Sodium Chloride 0.9% 100 ML IVPB SCH (18:03)
[2017-09-13] MEDS: traMADol HCl 50 MG TAB PO SCH ×4 (02:09→22:47)
[2017-09-13] MEDS: Acetaminophen 500 MG TAB PO SCH ×4 (02:10→22:47)
[2017-09-13] MEDS: Furosemide 20 MG/2 ML VIAL SLOW IVP SCH ×3 (05:11→22:48)
[2017-09-13 05:47] LABS: Anion Gap 11 mmol/L (10-20); BUN (Urea Nitrogen) 7 mg/dL (7.0-18.7); Calc. Creatinine Clearance 224 mL/min (70-130); Carbon Dioxide 29 mmol/L (22-29); Chloride 98 mmol/L (98-107); Estimated GFR-MDRD Greater than 90; Glucose 112 mg/dL (70-105); Magnesium 1.9 mg/dL (1.6-2.6); Phosphorus 4.4 mg/dL (2.3-4.7); Potassium 4.2 mmol/L (3.5-5.1); Sodium 134 mmol/L (136-145)
[2017-09-13] MEDS: Sodium Chloride 1 GM TAB PO SCH ×3 (09:08→16:38)
[2017-09-13] MEDS: Ascorbic Acid 500 mg Chewable Tablet PO SCH ×2 (09:08→22:48)
[2017-09-13] MEDS: Famotidine 20 MG TAB PO SCH ×2 (09:09→22:48)
[2017-09-13] MEDS: Ferrous Sulfate 325 MG TAB PO SCH ×2 (09:09→16:38)
[2017-09-13] MEDS: Polyethylene Glycol 3350 17 GM Packet PO SCH (09:10)
[2017-09-13] MEDS: Senokot S 8.6-50 MG TAB PO SCH ×2 (09:10→22:51)
--- NOTE | 2017-09-13 10:41 | RAD ---
PORTABLE CHEST: Date: 09/13/17 PROVIDED CLINICAL HISTORY: Hemothorax. FINDINGS: Comparison made with the examination dated 09/12/17. Significant interval change with respect to the prior examination is not apparent. IMPRESSION: As above. POS: [facility]
[2017-09-13] MEDS: HYDROcodone/Acetaminophen 7.5/325 mg Tablet PO PRN (11:17)
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
[2017-09-13] MEDS: traMADol HCl 50 MG TAB PO PRN (16:37)
[2017-09-13] MEDS: cefTRIAXone\\ROCEPHIN 2 GM, Admixture Fee 1 EACH in Sodium Chloride 0.9% 100 ML IVPB SCH (17:34)
[2017-09-14] MEDS: Acetaminophen 500 MG TAB PO SCH ×4 (02:49→21:32)
[2017-09-14] MEDS: traMADol HCl 50 MG TAB PO SCH ×4 (02:50→21:32)
[2017-09-14 04:54] LABS: #Eosinphils 0.4 thou/uL (0.0-0.7); #Lymphocytes 1.5 thou/uL (1.20-3.40); #Monocytes 0.9 thou/uL (0.11-0.59); #Neutrophils 9.7 thou/uL (1.40-6.50); %Basophils 0.1 % (0.0-1.0); %Eosinophils 3.6 % (0.0-10.0); %Lymphocytes 11.8 % (21.0-51.0); %Monocytes 7.1 % (0.0-10.0); %Neutrophils 77.4 % (42.0-75.0); Mean Corpuscular HGB CONC 32.1 g/dL (32.0-36.0); Mean Corpuscular Hemoglobin 29.3 pg (27.0-31.0); Mean Corpuscular Volume 91.2 fL (78.0-98.0); Mean Platelet Volume 5.7 fL (7.4-10.4); Platelet Count 620 thou/uL (130-400); RBC Distribution Width 13.5 % (11.5-14.5); Red Blood Cell (RBC) Count 3.43 mill/uL (4.20-5.40); White Blood Cell (WBC) Count 12.5 thou/uL (4.8-10.8)
[2017-09-14 05:03] LABS: Anion Gap 12 mmol/L (10-20); BUN (Urea Nitrogen) 10 mg/dL (7.0-18.7); Calc. Creatinine Clearance 199 mL/min (70-130); Calcium 9.3 mg/dL (7.8-10.44); Carbon Dioxide 28 mmol/L (22-29); Chloride 96 mmol/L (98-107); Estimated GFR-MDRD Greater than 90; Glucose 117 mg/dL (70-105); Phosphorus 4.3 mg/dL (2.3-4.7); Potassium 4.1 mmol/L (3.5-5.1); Sodium 132 mmol/L (136-145)
[2017-09-14] MEDS: Furosemide 20 MG/2 ML VIAL SLOW IVP SCH (06:15)
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
[2017-09-14] MEDS: Ascorbic Acid 500 mg Chewable Tablet PO SCH ×2 (09:17→21:32)
[2017-09-14] MEDS: Polyethylene Glycol 3350 17 GM Packet PO SCH (09:17)
[2017-09-14] MEDS: Senokot S 8.6-50 MG TAB PO SCH ×2 (09:20→22:30)
[2017-09-14] MEDS: Ferrous Sulfate 325 MG TAB PO SCH ×2 (09:21→16:53)
[2017-09-14] MEDS: Sodium Chloride 1 GM TAB PO SCH ×3 (09:21→16:53)
[2017-09-14] MEDS: Famotidine 20 MG TAB PO SCH ×2 (09:21→21:31)
[2017-09-14] MEDS: Enoxaparin Sodium 40 MG/0.4 ML SYRINGE SC SCH (09:22)
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
[2017-09-14] MEDS: Cephalexin 250 MG CAP PO SCH ×2 (11:47→17:58)
[2017-09-15] MEDS: Cephalexin 250 MG CAP PO SCH ×3 (00:50→11:26)
[2017-09-15] MEDS: traMADol HCl 50 MG TAB PO SCH ×2 (03:40→08:09)
[2017-09-15] MEDS: Acetaminophen 500 MG TAB PO SCH ×2 (03:40→08:09)
[2017-09-15 06:40] LABS: #Eosinphils 0.4 thou/uL (0.0-0.7); #Lymphocytes 0.9 thou/uL (1.20-3.40); #Monocytes 0.9 thou/uL (0.11-0.59); %Basophils 0.3 % (0.0-1.0); %Eosinophils 3.9 % (0.0-10.0); %Lymphocytes 8.4 % (21.0-51.0); %Monocytes 7.5 % (0.0-10.0); %Neutrophils 79.9 % (42.0-75.0); Hemoglobin 11.6 g/dL (12.0-16.0); Mean Corpuscular HGB CONC 32.5 g/dL (32.0-36.0); Mean Corpuscular Hemoglobin 30.7 pg (27.0-31.0); Mean Corpuscular Volume 94.2 fL (78.0-98.0); Mean Platelet Volume 8.3 fL (7.4-10.4); Platelet Count 342 thou/uL (130-400); RBC Distribution Width 13.5 % (11.5-14.5); Red Blood Cell (RBC) Count 3.78 mill/uL (4.20-5.40); White Blood Cell (WBC) Count 11.2 thou/uL (4.8-10.8)
[2017-09-15 06:41] LABS: Anion Gap 16 mmol/L (10-20); BUN (Urea Nitrogen) 10 mg/dL (7.0-18.7); Calc. Creatinine Clearance 196 mL/min (70-130); Calcium 9.3 mg/dL (7.8-10.44); Carbon Dioxide 19 mmol/L (22-29); Chloride 100 mmol/L (98-107); Estimated GFR-MDRD Greater than 90; Glucose 110 mg/dL (70-105); Magnesium 2.1 mg/dL (1.6-2.6); Phosphorus 3.9 mg/dL (2.3-4.7); Potassium 4.8 mmol/L (3.5-5.1); Sodium 130 mmol/L (136-145)
[2017-09-15] MEDS ORDERED: Furosemide 40 MG TAB PO SCH (07:30)
[2017-09-15] MEDS: Enoxaparin Sodium 40 MG/0.4 ML SYRINGE SC SCH (08:07)
[2017-09-15] MEDS: Sodium Chloride 1 GM TAB PO SCH ×2 (08:08→11:26)
[2017-09-15] MEDS: Ascorbic Acid 500 mg Chewable Tablet PO SCH (08:08)
[2017-09-15] MEDS: Ferrous Sulfate 325 MG TAB PO SCH (08:09)
[2017-09-15] MEDS: Famotidine 20 MG TAB PO SCH (08:09)
[2017-09-15] MEDS: Polyethylene Glycol 3350 17 GM Packet PO SCH (08:12)
[2017-09-15] MEDS: Senokot S 8.6-50 MG TAB PO SCH (08:13)
--- NOTE | 2017-09-15 08:15 | RAD ---
SINGLE VIEW OF THE CHEST: COMPARISON: 09/14/17. HISTORY: Hemothorax with chest tube. FINDINGS: A single view of the chest shows a normal-size cardiomediastinal silhouette. There is an opacity pro jecting over the lower aspect of the right chest which likely represents the known hemothorax. Multi ple right rib fractures are seen. No pneumothorax is seen. IMPRESSION: Stable exam. POS: [facility]
[2017-09-15] MEDS ORDERED: Aspirin 325 MG TAB PO SCH (09:00)
[2017-09-15 11:40] VITALS: BP 115/81; TEMP 98
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
== END 2017-09-15 13:29 | disposition home or self-care (01) | DRG 963 ==
LOC: EDBD 18:26 → ERS 18:26 → CCU 23:05 → SURG B 09-02 17:51
PROVIDERS: ADMIT Surgery; ATTEND Surgery
PROC: 0W9930Z Drainage of Right Pleural Cavity with Drainage Device, Percutaneous Approach (ICD-10-PCS; 2017-09-01)
PROC: 30233K1 Transfusion of Nonautologous Frozen Plasma into Peripheral Vein, Percutaneous Approach (ICD-10-PCS; 2017-09-01)
PROC: 30233N1 Transfusion of Nonautologous Red Blood Cells into Peripheral Vein, Percutaneous Approach (ICD-10-PCS; 2017-09-01)
PROC: 30233R1 Transfusion of Nonautologous Platelets into Peripheral Vein, Percutaneous Approach (ICD-10-PCS; 2017-09-01)
PROC: 5A09357 Assistance with Respiratory Ventilation, Less than 24 Consecutive Hours, Continuous Positive Airway Pressure (ICD-10-PCS; 2017-09-06)
PROC: 0W9930Z Drainage of Right Pleural Cavity with Drainage Device, Percutaneous Approach (ICD-10-PCS; 2017-09-07)
PROC: 0WC94ZZ Extirpation of Matter from Right Pleural Cavity, Percutaneous Endoscopic Approach (ICD-10-PCS; principal; 2017-09-09)
PROC: 02HV33Z Insertion of Infusion Device into Superior Vena Cava, Percutaneous Approach (ICD-10-PCS; 2017-09-09)
PROC: 0BJ08ZZ Inspection of Tracheobronchial Tree, Via Natural or Artificial Opening Endoscopic (ICD-10-PCS; 2017-09-09)
DX: S27.2XXA Traumatic hemopneumothorax, initial encounter (principal); S36.115A Moderate laceration of liver, initial encounter; T79.4XXA Traumatic shock, initial encounter; J96.01 Acute respiratory failure with hypoxia; A41.9 Sepsis, unspecified organism; S06.9X1A Unspecified intracranial injury with loss of consciousness of 30 minutes or less, initial encounter; S22.43XA Multiple fractures of ribs, bilateral, initial encounter for closed fracture; S22.21XA Fracture of manubrium, initial encounter for closed fracture; S27.322A Contusion of lung, bilateral, initial encounter; S36.892A Contusion of other intra-abdominal organs, initial encounter; D62 Acute posthemorrhagic anemia; E87.1 Hypo-osmolality and hyponatremia; J91.8 Pleural effusion in other conditions classified elsewhere; S20.112A Abrasion of breast, left breast, initial encounter; S20.111A Abrasion of breast, right breast, initial encounter; S60.511A Abrasion of right hand, initial encounter; S80.11XA Contusion of right lower leg, initial encounter; S70.12XA Contusion of left thigh, initial encounter; E87.6 Hypokalemia; E83.39 Other disorders of phosphorus metabolism; R40.2412 Glasgow coma scale score 13-15, at arrival to emergency department; E83.42 Hypomagnesemia; G89.11 Acute pain due to trauma; B95.61 Methicillin susceptible Staphylococcus aureus infection as the cause of diseases classified elsewhere; V49.40XA Driver injured in collision with unspecified motor vehicles in traffic accident, initial encounter; Y92.410 Unspecified street and highway as the place of occurrence of the external cause
CPT/HCPCS: 36415; 36416; 36430; 51702; 70450; 71045; 71250; 71260; 72125; 72170; 74177; 80048; 81001; 81003; 81015; 82150; 82533; 83690; 83735; 83880; 84100; 84703; 85007; 85014; 85018; 85025; 85027; 85384; 85610; 85730; 86850; 86900; 86901; 87040; 87077; 87086; 87149; 87186; 90471; 90715; 93005; 93010; 94640; 94660; 96365; 96366; 96367; 96374; 96375; 96376; A4216; G0390; G8978-GP-CJ; G8978-GP-CM; G8979-GP-CI; G8979-GP-CJ; J0131; J0670; J0690; J0696; J1650; J1885; J1940; J1956; J2001; J2250; J2270; J2405; J2704; J3010; J3475; J3480; J7050; J7614; J7620; P9016; P9035; P9045; P9048; P9059; Q0162; S0028